=== PATIENT | male | born 1980 ===

== ENCOUNTER 2017-06-23 16:52 | Emergency (ER) | payer OTHER ==
[~2017-06-23] VITALS: Ht 172.7 cm; Wt 72.6 kg
[2017-06-23 17:01] VITALS: Ht 172.7 cm; Wt 72.6 kg
[2017-06-23 17:12] VITALS: BP 134/79
== END 2017-06-23 17:12 | disposition other institution (70) ==
LOC: ED 16:52
DX: Z02.89 Encounter for other administrative examinations (principal)